=== PATIENT | female | born 1985 | race Caucasian/White ===

== ENCOUNTER 2016-07-09 09:33 | Inpatient (IN) | payer OTHER ==
[2016-07-09] MEDS ORDERED: LACTATED RINGERS 2,000 ML ONE (10:32)
[2016-07-09] MEDS: LACTATED RINGERS 1,000 ML IV SCH ×2 (10:35→11:12)
--- NOTE | 2016-07-09 10:38 | History and Physical Report ---
History of Present Illness Date of examination: 07/09/16 Date of admission: 07/09/16 10:27 Chief complaint: Contractions History of present illness: Pt is a 31yo HF EDC 07/26/16; EGA 37 4/7 weeks presents to L&D complaining of RUC's q 2-4 mins. She received care at [facility] since 11 weeks and course is significant for previous C Section x 2 and GDM diet controlled. She is scheduled for a Repeat C Section for 07/25/16, but will proceed with her Repeat C Section today since she is in labor. records are available and GBS Negative. Past History Past Medical History: diabetes (GDM - diet controlled) Past Surgical History: section (x2) Family/Genetic History: none Social history: no significant social history, single - Obstetrical History Expected Date of Delivery: 07/26/16 Actual Gestation: 37 Week(s) 4 Day(s) : 3 Medications and Allergies Allergies Allergy/AdvReac Type Severity Reaction Status Date / Time No Known Allergies Allergy Unverified 07/09/16 09:52 Review of Systems All systems: negative - Vital Signs Vital signs: Vital Signs Pulse BP 68 123/68 07/09/16 09:49 07/09/16 09:49 Temp Pulse Resp BP Pulse Ox 98.2 F 72 18 122/64 07/09/16 10:17 07/09/16 10:19 07/09/16 10:17 07/09/16 10:19 - Physical Exam Breasts: Positive: deferred Cardiovascular: Regular rate Lungs: Positive: Clear to auscultation Abdomen: Positive: normal appearance Genitourinary (Female): Positive: normal external genitalia Vagina: Positive: normal moisture Uterus: Positive: enlarged Extremities: Positive: normal - Obstetrical FHR: category 1 Uterine Contraction Monitor Mode: External Results Result Diagrams: 07/09/16 10:30 All other labs normal. Assessment and Plan - Patient Problems (1) 37 weeks gestation of Onset Date: 07/09/16 Current Visit: Yes Status: Acute Plan to address problem: A: IUP @ 37 4/7 weeks in labor Previous C Section x 2 GDM - diet controlled P: Admit to L&D for Repeat C Section (2) Previous delivery affecting Onset Date: 07/09/16 Current Visit: Yes Status: Acute
[2016-07-09 10:48] LABS: Basophils % (Auto) 0.4 % (0.0-1.8); Eosinophils % (Auto) 0.1 % (0.0-4.3); Hematocrit 35.4 % (30.3-42.9); Hemoglobin 11.7 gm/dl (10.1-14.3); Mean Corpuscular HGB Conc 33 % (30-34); Mean Corpuscular Hemoglobin 28 pg (28-32); Mean Corpuscular Volume 83 fl (79-97); Platelet Count 220 K/mm3 (140-440); Red Blood Count 4.27 M/mm3 (3.65-5.03); Red Cell Distribution Width 14.1 % (13.2-15.2)
[2016-07-09] MEDS ORDERED: PEPCID IV ONE (11:00)
[2016-07-09] MEDS ORDERED: BICITRA PO ONE (11:00)
[2016-07-09] MEDS ORDERED: LACTATED RINGERS 1,000 ML IV SCH (11:00)
[2016-07-09] MEDS ORDERED: FLUARIX QUAD 2016-2017(36 MOS+) IM ONE (11:00)
--- NOTE | 2016-07-09 11:49 | Anesthesia Consultation ---
Anesthesia Consult and Med Hx Date of service: 07/09/16 - Airway Anesthetic Teeth Evaluation: Good ROM Head & Neck: Adequate Mental/Hyoid Distance: Adequate Mallampati Class: Class II Intubation Access Assessment: Probably Good - Pre-Operative Health Status ASA Pre-Surgery Classification: ASA2 Proposed Anesthetic Plan: Spinal - Pulmonary Hx Asthma: No COPD: No Hx Pneumonia: No - Cardiovascular System Hx Hypertension: No - Central Nervous System Hx Seizures: No Hx Psychiatric Problems: No - Endocrine Hx Renal Disease: No Hx End Stage Renal Disease: No Hx Non-Insulin Dependent Diabetes: Yes (gestational diabetes) Hx Hypothyroidism: No Hx Hyperthyroidism: No - Hematic Hx Anemia: No Hx Sickle Cell Disease: No - Other Systems Hx Alcohol Use: No
[2016-07-09] MEDS ORDERED: DILAUDID IV PRN (11:50)
[2016-07-09] MEDS ORDERED: ZOFRAN IV PRN (11:50)
[2016-07-09] MEDS ORDERED: NARCAN 0.4 MG/1 ML IV PRN ×2 (11:50→13:55)
[2016-07-09] MEDS ORDERED: BENADRYL IV PRN (11:50)
--- NOTE | 2016-07-09 11:50 | Anesthesia Day of Surgery ---
Anesthesia Day of Surgery - Day of Surgery Patient Examined: Yes Patient H&P Reviewed: Yes Patient is NPO: Yes
[2016-07-09] MEDS ORDERED: TORADOL IV PRN (11:52)
[2016-07-09] MEDS ORDERED: REGLAN IV ONE (12:00)
[2016-07-09] MEDS ORDERED: SODIUM CHLORIDE FLUSH SYRINGE 10 ML IV SCH ×2 (12:00→14:00)
[2016-07-09] MEDS ORDERED: PITOCin/NS 20 UNIT/1000ML DRIP 20 UNITS/1,000 ML BAG IV SCH ×2 (12:00→15:00)
[2016-07-09] MEDS ORDERED: ANCEF/STERILE WATER 2 GM/20 ML 2 GM/20 ML SYRINGE IV NR (12:00)
[2016-07-09] MEDS ORDERED: MORPHINE ONE (12:38)
[2016-07-09] MEDS ORDERED: WATER FOR IRRIG STERILE IR ONE (13:00)
[2016-07-09] MEDS ORDERED: NACL 0.9% IR ONE (13:00)
[2016-07-09] MEDS ORDERED: NACL 0.9% 1000 ML 1,000 ML ONE (13:17)
[2016-07-09] MEDS ORDERED: ZOFRAN ONE (13:40)
--- NOTE | 2016-07-09 13:53 | Operative Report ---
Operative Report Operative Report: Date of procedure: 07/09/2016 Pre-operative diagnosis: 1. Intrauterine at 37-4/7 weeks in labor 2. Previous section 2 3. Gestational diabetes mellitus Post-operative diagnosis: Same with pelvic adhesions Procedure name(s): Repeat low transverse section Surgeon: Anand Darden MD Director Of Physician Practices: None Anesthesia: Spinal anesthesia by Dr. Michelle Quiroz EBL: 700 mL's Findings: A 3239 g male Apgars 9 at 1 minute 9 at 5 minutes. Clear amniotic fluid. Normal uterus with adhesions to the lower uterine segment. Normal tubes and ovaries bilaterally. Procedure: After the patient was prepped and draped in usual sterile fashion, and after satisfactory level of epidural anesthesia was obtained, the skin knife was used to make a transverse skin incision through the previous skin scar. The incision was excised down to layer of the fascia, which was nicked in the midline and extended laterally using the Bovie cautery. The rectus muscles were dissected off the rectus fascia both superiorly and inferiorly. The rectus bellies in the midline, and the peritoneum was entered under direct visualization. The peritoneal incision was extended superiorly and inferiorly. A bladder flap was created and the bladder blade was then placed. There was a large amounts of thick adhesions to the lower uterine segment. The uterus was scored in a curvilinear linear fashion, entered in the midline revealing clear amniotic fluid. The infant's head was delivered onto the surgical field, and the oropharynx and nasopharynx were bulb suctioned. The rest of the infant's body was delivered, cord was doubly clamped and cut and the infant was handed to the waiting respiratory team. Cord blood was then obtained. The placenta was manually removed from the uterus, and the uterus removed from its normal anatomical position. After gentle uterine lavage, the incision was inspected and found to be without extensions. It was then closed in 2 layers using 0 Vicryl suture in a running interlocking fashion, the second layer imbricating the first. The dense adhesions to the right lower uterine segments was left alone. After good hemostasis was achieved, copious amounts or irrigation was performed, and the gutters were suctioned free of blood and blood clots. The Tisseel sealant was sprayed across the uterine incision. The uterus was then returned to its normal anatomical position, and after excellent hemostasis assured, the peritoneum was reapproximated using 3-0 Vicryl suture in a running interlocking fashion, and then the rectus muscles were reapproximated using 3-0 Vicryl suture in a [id number] configuration. The fascia was then reapproximated using 0 Vicryl suture in running interlocking fashion. The subcutaneous layer was made hemostatic using Bovie cautery, the Tisseel sealant was sprayed across the fascial incision and the skin edges reapproximated using 4-0 Vicryl suture in a subcuticular fashion. Patient tolerated the procedure well was transported to recovery in stable condition.
[2016-07-09] MEDS ORDERED: MILK OF MAGNESIA PO PRN (13:55)
[2016-07-09] MEDS ORDERED: TUCKS PAD TP PRN (13:55)
[2016-07-09] MEDS ORDERED: PHENERGAN PR PRN (13:55)
[2016-07-09] MEDS ORDERED: TYLENOL PO PRN (13:55)
[2016-07-09] MEDS ORDERED: MYLICON PO PRN (13:55)
[2016-07-09] MEDS ORDERED: LANSINOH TP PRN (13:55)
[2016-07-09] MEDS ORDERED: PERCOCET 5/325 PO PRN (13:55)
[2016-07-09] MEDS ORDERED: D5LR 1,000 ML IV SCH (15:00)
[2016-07-09] MEDS ORDERED: ANCEF/NS 1 GM/50 ML 1 GM/50 ML BAG IV SCH (18:00)
[2016-07-09] MEDS: MOTRIN PO PRN (22:03)
[2016-07-10 01:11] LABS: Hematocrit 26.7 % (30.3-42.9); Hemoglobin 8.9 gm/dl (10.1-14.3)
[2016-07-10] MEDS ORDERED: ANCEF/NS 1 GM/50 ML 1 GM/50 ML BAG IV ONE (05:16)
--- NOTE | 2016-07-10 09:02 | Progress Note ---
Assessment and Plan - Patient Problems (1) 37 weeks gestation of Onset Date: 07/09/16 Current Visit: Yes Status: Resolved (2) Previous delivery affecting Onset Date: 07/09/16 Current Visit: Yes Status: Resolved (3) Status post repeat low transverse section Onset Date: 07/10/16 Current Visit: Yes Status: Resolved Plan to address problem: A: S/P Repeat C Section - POD #1 Doing well P: Continue RPOC Anticipate discharge in 24-48hrs Subjective - Subjective Date of service: 07/10/16 Principal diagnosis: s/p Repeat C Section - POD #1 Interval history: Pt is feeling well without complaints. She is tolerating a liquid diet without nausea or vomiting. Patient reports: appetite normal, voiding normally, pain well controlled, flatus , ambulating normally [place]: doing well, nursing well Objective - Vital Signs Latest vital signs: Vital Signs Temp Pulse Pulse Resp BP BP Pulse Ox 07/10/16 04:00 98.6 F 72 22 122/76 07/10/16 00:00 98.6 F 82 22 124/70 07/09/16 19:35 98.6 F 74 22 123/74 07/09/16 18:24 18 07/09/16 16:16 99 F 77 20 131/65 07/09/16 16:10 20 07/09/16 15:00 18 07/09/16 14:20 66 13 118/64 100 07/09/16 14:11 70 18 107/54 100 07/09/16 14:01 70 13 126/100 100 07/09/16 13:56 73 17 100 07/09/16 10:19 72 122/64 07/09/16 10:17 98.2 F 18 07/09/16 09:49 68 123/68 Intake and Output 07/09/16 07/10/16 07/10/16 22:59 06:59 14:59 Intake Total 1440 2250 Output Total 400 1600 Balance 1040 650 Intake: IV 700 2250 D5lr 1,000 ml @ 125 mls/ 125 hr IV DIRECT URBANO Rx#: [id number] PITOCin/NS 20 UNIT/1000ML 700 2125 DRIP 20 units In 1,000 ml @ 250 mls/hr IV TITR URBANO Rx#:[id number] Oral 740 Output: Urine 400 1600 Indwelling Catheter 400 Void 0 1600 Other: Total, Intake Amount 320 Total, Output Amount 400 1600 # Voids Void 3 - Exam Breasts: Present: deferred Cardiovascular: Present: Regular rate Lungs: Present: Clear to auscultation Abdomen: Present: normal appearance, soft Uterus: Present: normal, firm, fundal height below umbilicus Extremities: Present: normal Incision: Present: normal, dry, intact, dressed - Labs Labs: Abnormal lab results 07/09/16 07/09/16 07/10/16 Range/Units 10:30 11:22 00:38 Hgb 8.9 L (10.1-14.3) gm/dl Hct 26.7 L D (30.3-42.9) % Lymph % (Auto) 11.8 L (13.4-35.0) % Seg Neutrophils % 83.1 H (40.0-70.0) % Seg Neutrophils # 8.3 H (1.8-7.7) K/mm3 POC Glucose 61 L (70-105) Laboratory Tests 07/09/16 07/09/16 07/09/16 10:30 10:30 11:22 WBC 10.0 RBC 4.27 Hgb 11.7 Hct 35.4 MCV 83 MCH 28 MCHC 33 RDW 14.1 Plt Count 220 Lymph % (Auto) 11.8 L [place] % (Auto) 4.6 Eos % (Auto) 0.1 Baso % (Auto) 0.4 Lymph # 1.2 [place] # 0.5 Eos # 0.0 Baso # 0.0 Seg Neutrophils % 83.1 H Seg Neutrophils # 8.3 H POC Glucose 61 L Blood Type O POSITIVE Antibody Screen Negative 07/10/16 00:38 WBC RBC Hgb 8.9 L Hct 26.7 L D MCV MCH MCHC RDW Plt Count Lymph % (Auto) [place] % (Auto) Eos % (Auto) Baso % (Auto) Lymph # [place] # Eos # Baso # Seg Neutrophils % Seg Neutrophils # POC Glucose Blood Type Antibody Screen
[2016-07-10] MEDS: PRENATAL VITAMIN PO SCH (10:05)
[2016-07-10] MEDS: FEOSOL PO SCH (10:07)
--- NOTE | 2016-07-10 10:14 | Progress Note ---
Subjective Date of service: 07/10/16 Principal diagnosis: s/p Repeat C Section - POD #1 Interval history: 1st POD after Patient is in the bed, comfortable. Pain is well controlled with pain meds. Ambulated. No nausea or vomiting. No anesthesia complications Objective - Constitutional Vitals: Vital Signs - 12hr 07/10/16 07/10/16 07/10/16 00:00 04:00 07:55 Temperature 98.6 F 98.6 F 98.2 F Pulse Rate [ 82 72 From Monitor] Pulse Rate [ 76 Right Radial] Respiratory 22 22 20 Rate Blood Pressure 124/70 122/76 [Left Arm] Blood Pressure 94/54 [Right Arm] - Labs CBC & Chem 7: 07/10/16 00:38 Labs: Abnormal lab results 07/09/16 07/09/16 07/10/16 Range/Units 10:30 11:22 00:38 Hgb 8.9 L (10.1-14.3) gm/dl Hct 26.7 L D (30.3-42.9) % Lymph % (Auto) 11.8 L (13.4-35.0) % Seg Neutrophils % 83.1 H (40.0-70.0) % Seg Neutrophils # 8.3 H (1.8-7.7) K/mm3 POC Glucose 61 L (70-105)
[2016-07-10] MEDS ORDERED: BOOSTRIX IM ONE (12:00)
[2016-07-10] MEDS ORDERED: M-M-R II VACCINE SUB-Q ONE (13:57)
[2016-07-10] MEDS: NORCO 5/325 PO PRN (14:15)
[2016-07-10] MEDS: MOTRIN PO PRN ×2 (14:15→23:47)
[2016-07-11] MEDS: MOTRIN PO PRN ×2 (05:15→12:48)
--- NOTE | 2016-07-11 09:35 | Progress Note ---
Assessment and Plan POD # 2 s/p Repeat LTCS -Doing well P: -Continue present care -Possible discharge today - Patient Problems (1) Status post repeat low transverse section Onset Date: 07/10/16 Current Visit: Yes Status: Resolved Subjective - Subjective Date of service: 07/11/16 Principal diagnosis: s/p Repeat C Section - POD #2 Interval history: Patient seen and examined, stable doing well. Adequate bowel bladder function desires discharge home Patient reports: appetite normal, voiding normally, pain well controlled, flatus , no dizzy ambulation, no nauseated [place]: doing well Objective - Vital Signs Latest vital signs: Vital Signs Temp Pulse Pulse Resp BP BP 07/11/16 04:10 98.2 F 60 20 149/72 07/11/16 01:00 99.0 F 98 H 20 104/64 07/10/16 23:47 18 07/10/16 20:05 18 07/10/16 16:15 98.8 F 84 20 98/60 07/10/16 12:40 99.2 F 76 20 100/50 Intake and Output 07/10/16 07/11/16 07/11/16 22:59 06:59 14:59 Intake Total 560 480 Output Total 200 500 Balance 360 -20 Intake: Oral 560 480 Output: Urine 200 500 Indwelling Catheter 200 500 Other: Total, Intake Amount 360 240 Total, Output Amount 200 500 # Voids Indwelling Catheter 1 Void 1 1 - Exam Abdomen: Present: normal appearance, soft. Absent: distention, tenderness, guarding, rigidity Uterus: Present: fundal height below umbilicus. Absent: tenderness Extremities: Present: normal Incision: Present: dry, intact
--- NOTE | 2016-07-11 09:37 | Discharge Summary ---
Providers - Providers Date of Admission: 07/09/16 10:27 Date of discharge: 07/11/16 Attending physician: LEONEL TOMLIN Primary care physician: LEONEL TOMLIN Hospitalization Reason for admission: active labor, section, IUP at term Delivery: Procedure: repeat low transverse Incision: dry, intact Other procedures: none complications: none Discharge diagnosis: IUP at term delivered baby: male Hospital course: Uncomplicated postoperative course Condition at discharge: Good Disposition: DISCHARGED TO HOME OR SELFCARE - Discharge Diagnoses (1) Status post repeat low transverse section Status: Resolved Plan - Discharge Medications Prescriptions: Ferrous Sulfate [Feosol 325 MG tab] 325 mg PO BID #60 tablet HYDROcodone/APAP 5-325 [[place] 5/325] 1 each PO Q6HR PRN #30 tablet PRN Reason: Pain Ibuprofen [Motrin] 800 mg PO Q8HR PRN #30 tablet PRN Reason: Moder Pain Unrelieved By [place] Vit W-Ca,Fe,FA(<1 mg) [ Vitamins] 1 each PO DAILY #30 tablet - Provider Discharge Summary Activity: no sex for 6 weeks, no heavy lifting 4 weeks, no strenuous exercise Diet: routine Additional instructions: [] Smoking cessation referral if applicable(refer to patient education folder for contact #) [] Refer to [facility]'s [facility] Booklet Call your doctor immediately for: * Fever > 100.5 * Heavy vaginal bleeding ( >1 pad per hour) * Severe persistent headache * Shortness of breath * Reddened, hot, painful area to leg or breast * Drainage or odor from incision. * Keep incision clean and dry at all times and follow doctor's instructions regarding bathing/showering - Follow up plan Follow up: LEONEL TOMLIN MD [Primary Care Provider] - 14 Days
[2016-07-11] MEDS: PRENATAL VITAMIN PO SCH (10:56)
[2016-07-11] MEDS: FEOSOL PO SCH (10:57)
[2016-07-11 12:24] VITALS: BP 117/66
[2016-07-11] MEDS: NORCO 5/325 PO PRN (12:48)
[2016-07-11] MEDS ORDERED: M-M-R II VACCINE SUB-Q ONE (14:45)
== END 2016-07-11 15:35 | disposition home or self-care (01) | DRG 766 ==
LOC: TRG 09:33 → APU 10:27 → OB 15:32
PROVIDERS: ADMIT Obstetrics & Gynecology; ATTEND Obstetrics & Gynecology
PROC: 10D00Z1 Extraction of Products of Conception, Low, Open Approach (ICD-10-PCS; principal; 2016-07-09)
DX: O34.211 Maternal care for low transverse scar from previous cesarean delivery (principal); O24.420 Gestational diabetes mellitus in childbirth, diet controlled; Z3A.37 37 weeks gestation of pregnancy; Z37.0 Single live birth
CPT/HCPCS: 36415; 82962; 85014; 85018; 85025; 86850; 86900; 86901; 90471; 90686; 99211; C9250; G0463; J0690; J1885; J2270; J2405; J2590; J2765; J7030; J7120; J7121